=== PATIENT | male | born 1990 | race Caucasian/White ===

== ENCOUNTER 2016-12-28 23:53 | Emergency (ER) | payer OTHER ==
--- NOTE | 2016-12-28 23:55 | PDOC ---
History of Present Illness - General Chief Complaint: Palpitations Stated Complaint: PALPITATIONS Time Seen by Provider: 12/28/16 23:55 - History of Present Illness Initial Comments: This 26-year-old man with a history of congenital aortic stenosis(s/p AVR 1995, 2007) presents with a few month history of palpitations. Palpitations began after a panic attack; he was evaluated by a direct sales representative and continues to be under his care. Patient has had echocardiogram and exercise stress test recently which were reportedly normal. He is awaiting 30 day Holter monitoring. The patient reported to the ER [facility] because he's had a few days of feeling fatigued along with his palpitations. The patient describes the palpitations as being an extra beat that feels forceful as compared to normal beats, occurring a few times per minute. He denies sustained rapid heartbeat or irregular rhythm. Patient has continued regular resistance and aerobic training. He states that he does not feel the extra beats during exercise but usually during rest. He has noted no increased fatigue with exercise. He denies chest pain other than fleeting bilateral anterior chest discomfort, not related to exercise and self resolving. The symptom has occurred occasionally over the last few months. His direct sales representative is aware of this. He denies sustained shortness of breath. There has been no recent acute febrile illness. No recent vomiting or diarrhea. His direct sales representative has recently prescribed metoprolol which he continues to take. The patient states that he has attempted stopping all caffeine intake(a few weeks ago). Although he did not ingest any caffeine for a week, patient states that there was no decrease in frequency of extra beats Past History - Past Medical History Allergies/Adverse Reactions: Allergies Allergy/AdvReac Type Severity Reaction Status Date / Time No Known Allergies Allergy Unverified 12/29/16 00:04 Home Medications: Ambulatory Orders Metoprolol Tartrate 50 mg PO DAILY 12/29/16 Review of Systems - Review of Systems Able to Perform ROS?: Yes Comments:: 12 point review of systems is negative except for what is noted in the history of present illness *Physical Exam - Vital Signs Last Vital Signs Temp Pulse Resp BP Pulse Ox 98.2 F 65 14 125/69 100 12/28/16 23:57 12/29/16 01:13 12/29/16 01:13 12/29/16 01:13 12/29/16 01:13 - Physical Exam Comments: GENERAL: The patient is awake, alert, and fully oriented Vital signs as noted HEAD: Normal with no signs of trauma. EYES: Pupils equal, round and reactive to light, extraocular movements intact, sclera anicteric, conjunctiva clear with no pallor. ENT:dry mucous membranes. Ears normal, nares patent, oropharynx clear without exudates. NECK: Normal range of motion, supple without lymphadenopathy, JVD, or masses. LUNGS: Breath sounds equal, clear to auscultation bilaterally. No wheeze/ crackles HEART: occasional extra systole auscultated;3/6 holosystolic murmur over precordium; no extra sounds ABDOMEN: Soft/nontender/nondistended. BS wnl. No guarding or rebound. No palpable masses. No hepatosplenomegaly. EXTREMITIES: Normal range of motion, no edema. No clubbing or cyanosis. No cords, erythema, or tenderness. NEUROLOGICAL: Cranial nerves II through XII grossly intact. Normal speech, normal gait. PSYCH: Normal mood, mildly anxious affect. SKIN: Warm, Dry, normal turgor, no rashes or lesions noted. 12 lead EKG shows NSR at 66 bpm; axis, waveforms and intervals are normal. No arrythmia/PVC/PAC present ED Treatment Course - LABORATORY CBC & Chemistry Diagram: 12/29/16 00:30 12/29/16 00:30 - ADDITIONAL ORDERS Additional order review: Laboratory Results 12/29/16 12/29/16 12/29/16 00:30 00:30 00:30 INR 1.15 H Sodium Potassium Chloride Carbon Dioxide Anion Gap BUN Creatinine Creat Clearance w eGFR Random Glucose Calcium Magnesium Total Bilirubin AST ALT Alkaline Phosphatase Creatine Kinase 301 Creatine Kinase Index 0.8 CK-MB (CK-2) 2.376 CK-MB (CK-2) Rel Index Cancelled Troponin I 0.02 Total Protein Albumin 12/29/16 12/29/16 00:30 00:30 INR Sodium 140 Potassium 4.1 Chloride 103 Carbon Dioxide 24 Anion Gap 13 BUN 27 H Creatinine 1.6 H Creat Clearance w eGFR 51.73 Random Glucose 83 Calcium 9.2 Magnesium 2.3 Total Bilirubin 0.6 AST 27 ALT 37 Alkaline Phosphatase 67 Creatine Kinase Cancelled Creatine Kinase Index CK-MB (CK-2) CK-MB (CK-2) Rel Index Troponin I Cancelled Total Protein 7.5 Albumin 4.1 12/29/16 00:30 RBC 4.91 MCV 88.8 MCHC 34.6 RDW 13.2 MPV 9.8 Neutrophils % 61.5 Lymphocytes % 27.9 Monocytes % 8.8 Eosinophils % 1.3 Basophils % 0.5 Progress Note - Progress Note Progress Note: CBC, cardiac enzymes, Chemistry profile, INR drawn to investigate if patient is anemic or has electrolyte abnormalities as well as to fully rule out any myocardial damage, although doubt that any ischemic event is ongoing. Cardiac monitoring was instituted: Patient had, on average, 2-3 unifocal PVCs per minute. Laboratory evaluation was essentially normal except for the BUN/ creatinine, which was 26/1.6. The patient has not had laboratory work done previously at this institution. He is unaware of previous values of BUN and creatinine. He's never been told that he had any renal insufficiency. A liter of normal saline IV was given Patient will be discharged with instructions to drink plenty of fluids, follow- up with his direct sales representative in the next several days, and return to ER if he has lightheadedness, chest pain or shortness of breath. He should try to limit the amount of caffeine that he ingests. The patient has expressed interest in finding a general medical doctor in this vicinity since he recently moved from [place]. He'll be given referral information for Dr. Sylvester and Dr. Brock *DC/Admit/Observation/Transfer Diagnosis at time of Disposition: Palpitations - Discharge Dispostion Disposition: HOME Condition at time of disposition: Stable - Referrals Referrals: Ravinder Sylvester MD [Staff Physician] - - Patient Instructions Printed Discharge Instructions: Premature Ventricular Beats Additional Instructions: drink plenty of fluids Continue metoprolol as prescribed Avoid excessive caffeine Follow-up with your direct sales representative as scheduled Followup with general medical doctor as discussed return to ER if palpitations worsen or you have chest pain/severe fatigue/ shortness of breath
[2016-12-29 00:04] VITALS: TEMP 98.2; BMI 27.1
[2016-12-29 01:14] VITALS: BP 125/69; PULSE 65
[2016-12-29 01:26] LABS: BASOPHIL 0.5 % (0-2.0); EOSINOPHIL 1.3 % (0-4.5); MCH 30.7 pg (25.7-33.7); MCHC 34.6 g/dl (32.0-35.9); MEAN CELL VOLUME 88.8 fl (80-96); MEAN PLT VOLUME 9.8 fl (7.5-11.1); NEUTROPHILS 61.5 % (42.8-82.8); PLATELET COUNT 153 K/MM3 (134-434); RDW 13.2 % (11.9-15.9)
[2016-12-29 01:36] LABS: INR 1.15 (0.82-1.09); PROTHROMBIN TIME (PATIENT) 12.7 SEC (9.98-11.88)
[2016-12-29 01:46] LABS: ALBUMIN 4.1 g/dl (3.4-5.0); BILIRUBIN,TOTAL 0.6 mg/dL (0.2-1.0); CALCIUM 9.2 mg/dL (8.5-10.1); CREATININE 1.6 mg/dL (0.7-1.3); MAGNESIUM 2.3 mg/dL (1.8-2.4); TOT PROT 7.5 g/dl (6.4-8.2)
[2016-12-29 01:49] LABS: TROPONIN I 0.02 ng/ml (0.00-0.05)
--- NOTE | 2016-12-29 16:47 | EKG ---
Test Reason : Blood Pressure : / mmHG Vent. Rate : 066 BPM Atrial Rate : 066 BPM P-R Int : 150 ms QRS Dur : 096 ms QT Int : 400 ms P-R-T Axes : 018 058 070 degrees QTc Int : 419 ms NORMAL SINUS RHYTHM TWI in V1-V2 Min RVCD NO PREVIOUS ECGS AVAILABLE Confirmed by MD RAZA MARJORY ([id number]) on 12/29/2016 4:47:03 PM Referred By: MD COOL Confirmed By:ERIC RAZA MD
== END 2016-12-29 02:37 | disposition home or self-care (01) ==
LOC: FER 23:53
DX: R00.2 Palpitations (principal); I35.0 Nonrheumatic aortic (valve) stenosis
CPT/HCPCS: 36415; 80053; 82550; 82553; 83735; 84484; 85025; 85610; 93005; 99285-25